=== PATIENT | male | born 1990 | race Caucasian/White ===

== ENCOUNTER 2017-06-17 18:44 | Emergency (ER) | payer BC, OTHER ==
[2017-06-17 20:07] VITALS: BP 119/71
[2017-06-17] MEDS ORDERED: Ondansetron TAB* 4 MG PO ONE (20:24)
[2017-06-17] MEDS ORDERED: Acetaminophen TAB* 325 MG PO ONE (20:25)
--- NOTE | 2017-06-17 20:29 | ED ---
Influenza-Like Illness - HPI Summary HPI Summary: 27 yr old with NVD, last emesis 3 hours ago. Watery diarrhea. He has had some runny nose and cough as well. No abdominal pain. No fainting. - History of Current Complaint Chief Complaint: UCGeneralIllness Time Seen by Provider: 06/17/17 20:19 - Allergy/Home Medications Allergies/Adverse Reactions: Allergies Allergy/AdvReac Type Severity Reaction Status Date / Time No Known Allergies Allergy Verified 06/17/17 20:08 PMH/Surg Hx/FS Hx/Imm Hx Previously Healthy: Yes - Surgical History Surgery Procedure, Year, and Place: Excess fluid in testicle, 2002 Infectious Disease History: No Infectious Disease History: Denies: Traveled Outside the [place] in Last 30 Days - Family History Known Family History: Positive: None - Social History Occupation: Employed Full-time Alcohol Use: None Substance Use Type: Reports: None Smoking Status (MU): Heavy Every Day Tobacco Smoker Type: Cigarettes Amount Used/How Often: 1/2 PPD Length of Time of Smoking/Using Tobacco: 12 Years Have You Smoked in the Last Year: Yes Review of Systems Positive: Fever, Chills, Fatigue Positive: Vomiting, Diarrhea, Nausea All Other Systems Reviewed And Are Negative: Yes Physical Exam Triage Information Reviewed: Yes Vital Signs On Initial Exam: Initial Vitals Temp Pulse Resp BP Pulse Ox 100.8 F 107 17 119/71 99 06/17/17 20:02 06/17/17 20:02 06/17/17 20:02 06/17/17 20:02 06/17/17 20:02 Vital Signs Reviewed: Yes Appearance: Positive: Well-Appearing, No Pain Distress Skin: Positive: Warm, Skin Color Reflects Adequate Perfusion Head/Face: Positive: Normal Head/Face Inspection Eyes: Positive: EOMI ENT: Positive: Pharynx normal, Nasal congestion, TMs normal Respiratory/Lung Sounds: Positive: Clear to Auscultation, Breath Sounds Present Cardiovascular: Positive: RRR. Negative: Murmur Abdomen Description: Positive: Nontender Musculoskeletal: Positive: Strength/ROM Intact Neurological: Positive: Sensory/Motor Intact, Alert, Oriented to Person Place, Time, CN Intact II-III Psychiatric: Positive: Normal - Caroline Coma Scale Best Eye Response: 4 - Spontaneous Best Motor Response: 6 - Obeys Commands Best Verbal Response: 5 - Oriented Coma Scale Total: 15 Diagnostics - Vital Signs Vital Signs Temp Pulse Resp BP Pulse Ox 06/17/17 20:02 100.8 F 107 17 119/71 99 - Laboratory Lab Statement: Any lab studies that have been ordered have been reviewed, and results considered in the medical decision making process. Flu Symptom Course/Dx - Course Course Of Treatment: 27 yr male with gastroenteritis, rx zofran. DC home. - Diagnoses Provider Diagnoses: Gastroenteritis Discharge - Discharge Plan Condition: Good Disposition: HOME Prescriptions: Ondansetron ODT TAB* [Zofran 4 MG Odt TAB*] 4 mg PO Q8H PRN #14 tab.odt PRN Reason: Nausea Patient Education Materials: Gastroenteritis (ED) Referrals: STEPHEN Borges [Primary Care Provider] -
[2017-06-17] MEDS ORDERED: Ondansetron ODT TAB* 4 MG PO ONE (20:30)
== END 2017-06-17 20:55 | disposition home or self-care (01) ==
LOC: UCCORT 18:44
DX: K52.9 Noninfective gastroenteritis and colitis, unspecified (principal); F17.210 Nicotine dependence, cigarettes, uncomplicated
CPT/HCPCS: 87502; 99212; A9270-GY; G0463

== ENCOUNTER 2019-04-24 08:43 | Emergency (ER) | payer OTHER ==
[2019-04-24 09:11] VITALS: BP 126/84
[2019-04-24] MEDS ORDERED: Tetan/Diph/Pertus SYR(Tdap)* 0.5 ML SYR(BOOSTRIX) use SYR contains LATEX IM ONE (09:56)
[2019-04-24] MEDS ORDERED: Ibuprofen TAB* 600 MG PO ONE (09:56)
--- NOTE | 2019-04-24 10:54 | UC ---
Upper Extremity HPI - HPI Summary HPI Summary: Patient presents to urgent care for evaluation on his left wrist pain patient was at work yesterday when a 2 x 4 board popped up nail in it. Patient states the nail struck him in the left wrist. Patient states he clean the with alcohol and a bandage. Patient states that he's got increasing pain. Mild redness at site. Patient's hand dominant. Patient is not on his last tetanus was. Patient denies any pierced tissues or weakness. Patient is not immunocompromised. Patient's medications as noted in the EMR by triage as reviewed this visit. - History of Current Complaint Chief Complaint: UCUpperExtremity Stated Complaint: LEFT WRIST INJURY (WC) Time Seen by Provider: 04/24/19 09:21 Hx Obtained From: Patient Pain Intensity: 5 - Allergies/Home Medications Allergies/Adverse Reactions: Allergies Allergy/AdvReac Type Severity Reaction Status Date / Time No Known Allergies Allergy Verified 04/24/19 09:08 Home Medications: Home Medications Ibuprofen TAB* [Advil TAB*] 400 mg PO Q6H PRN 04/24/19 [History Confirmed ] PMH/Surg Hx/FS Hx/Imm Hx Previously Healthy: Yes - Surgical History Surgical History: Yes Surgery Procedure, Year, and Place: Excess fluid in testicle, 2002 - Family History Known Family History: Positive: None, Non-Contributory - Social History Occupation: Employed Full-time Lives: With Family Alcohol Use: None Substance Use Type: None Smoking Status (MU): Heavy Every Day Tobacco Smoker Type: Cigarettes Amount Used/How Often: 1/2 PPD Length of Time of Smoking/Using Tobacco: 12 Years Have You Smoked in the Last Year: Yes Household Exposure Type: Cigarettes - Immunization History Most Recent Tetanus Shot: Unsure Review of Systems All Other Systems Reviewed And Are Negative: No Skin: Positive: Other - forearm wound Motor: Positive: Other - Wrist pain Physical Exam - Summary Physical Exam Summary: Vital Signs Reviewed: Yes A+Ox3, no distress Eyes: Conjunctiva Clear ENT: Hearing grossly normal neck: supple Respiratory: Positive: No respiratory distress, No accessory muscle use Cardiovascular: skin color reflect adequate perfusion 2+ radial, ulnar Musculoskeletal Exam: + flex/ext elbow + pronate/supinate + flex/ext wrist - increased pain dorsum wrist + full flexion/extension with pain referred to wrist Neurological: Positive: Alert, ambulatory without difficulty + thumb up, a ok, finger spread, finger cross Psychological: Positive: Normal Response To examiner Skin: Positive: no rash, no ecchymosis pt with puncture wound, volar aspect mid joint . mild edema, no fluctuance, induration, drainage. No pain extension to palmar surface or proximal Triage Information Reviewed: Yes Vital Signs: Initial Vital Signs Temp 98.1 F 04/24/19 09:08 Pulse 74 04/24/19 09:08 Resp 15 04/24/19 09:08 BP 126/84 04/24/19 09:08 Pulse Ox 100 04/24/19 09:08 Diagnostics - Radiology No standard instances Radiology Interpretation Completed By: Radiologist - Patient Name: MATHEW SON Medical Record#: [id number] Ordering Physician: Jessica Reyna MD Acct.#: [id number] : 1990 Age: 29 Sex: M Location: [facility] Exam Date: 04/24/19919 ADM Status: REG ER Order Information: FOREARM LEFT 2 VWS Accession Number: [id number] CPT: 97872 Indication: Left forearm injury. 2 views of left forearm demonstrates no fracture. No other bone or joint abnormality is present. IMPRESSION: No fracture of the left forearm is noted. <Electronically signed by Stephanie Gomez MD in OV> 04/24/19 100 Dictated By: Stephanie Gomez MD Dictated Date/Time: 04/24/19951 Transcribed Date/Time: 04/24/19951 Copy to: CC:Jessica Reyna MD; No Primary Care Phys,NOPCP Imaging - [facility] [address] [address] ph ) ph ([phone]) ph ([phone]) This report is only to be considered final once signed by the Provider(s) as displayed in the "<Electronically Signed by >" field (s). Absence of a signature indicates the report is in a draft status and still needs to be finalized. In the event this document was created by someone other than the signing Provider, the individual initiating the document will be listed in the "Entered by:" or "Dictated by:" zheng. 1 of 1 Patient Name: MATHEW SON Medical Record#: [id number] Ordering Physician: Jessica Reyna MD Acct.#: [id number] : 1990 Age: 29 Sex: M Location: [facility] Exam Date: 04/24/19919 ADM Status: REG ER Order Information: HAND LEFT 2 VWS Accession Number: [id number] CPT: 10637 INDICATION: Struck by a 2 x 4 with a nail protruding from it. Hit at the anterior side of the LEFT wrist over the carpals.. COMPARISON: No relevant prior exams available on the [facility] PACS for comparison. TECHNIQUE: AP and lateral hand views LEFT hand. AP, lateral, and oblique views LEFT wrist. REPORT : Negative for fracture, articular malalignment, conspicuous foreign body, or subcutaneous emphysema. Unremarkable soft tissue contours. IMPRESSION: #. Negative radiographic exam of the LEFT wrist and hand. <Electronically signed by Jelani Ray MD in OV> 04/24/19958 Dictated By: Jelani Ray MD Dictated Date/ Time: 04/24/19953 Transcribed Date/Time: 04/24/19953 Copy to: CC:Jessica Reyna MD; No Primary Care Phys,NOPCP Imaging - [facility] Ur[facility] [address] [address] ph ) ph ([phone]) ph ([phone]) This report is only to be considered final once signed by the Provider(s) as displayed in the "<Electronically Signed by >" field (s). Absence of a signature indicates the report is in a draft status and still needs to be finalized. In the event this document was created by someone other than the signing Provider, the individual initiating the document will be listed in the "Entered by:" or "Dictated by:" zheng. 1 of 1 Patient Name: MATHEW SON Medical Record#: [id number] Ordering Physician: Jessica Reyna MD Acct.#: [id number] : 1990 Age: 29 Sex: M Location: [facility] Exam Date: 04/24/19919 ADM Status: REG ER Order Information: WRIST LEFT 3+ VWS Accession Number: [id number] CPT: 78457 INDICATION: Struck by a 2 x 4 with a nail protruding from it. Hit at the anterior side of the LEFT wrist over the carpals.. COMPARISON: No relevant prior exams available on the [facility] PACS for comparison. TECHNIQUE: AP and lateral hand views LEFT hand. AP, lateral, and oblique views LEFT wrist. REPORT: Negative for fracture, articular malalignment, conspicuous foreign body, or subcutaneous emphysema. Unremarkable soft tissue contours. IMPRESSION: #. Negative radiographic exam of the LEFT wrist and hand. <Electronically signed by Jelani Ray MD in OV > 04/24/19958 Dictated By: Jelani Ray MD Dictated Date/Time: 04/24/19953 Transcribed Date/Time: 04/24/19953 Copy to: CC:Jessica Reyna MD; No Primary Care Phys,NOPCP Imaging - [facility] [address] [address] ph ([phone]) ph ([phone]) ph ([phone]) This report is only to be considered final once signed by the Provider(s) as displayed in the "<Electronically Signed by >" field (s). Absence of a signature indicates the report is in a draft status and still needs to be finalized. In the event this document was created by someone other than the signing Provider, the individual initiating the document will be listed in the "Entered by:" or "Dictated by:" zheng. 1 of 1 Upper Extremity Course/Dx - Course Course Of Treatment: Patient presents to urgent care for evaluation of wrist pain and puncture wound that happened yesterday at work. Patient is right-hand dominant. Patient was struck in the left arm with a 2 x 4 that a nail. Patient sustained a puncture wound to left lower aspect. On exam vital signs are stable. Patient with good CSM. Patient with pain with extension of the wrist as well as extension of the hand referred to the wrist. Patient does have a visible puncture wound with surrounding erythema. No drainage or fluctuance. Imaging was negative for acute fracture. We'll update patient's tetanus. We will recommend Motrin and Tylenol. Care. Starting antibiotics. Patient is splinted. Recommend patient follow up with occupational medicine. Patient given referral information. Form signed for Workmen's Comp. Patient given a work for Saturday. Patient is understanding and agreement with plan. Strict return precautions discussed this visit. - Differential Dx/Diagnosis Provider Diagnosis: Left wrist pain, Puncture wound Discharge ED - Sign-Out/Discharge Documenting (check all that apply): Patient Departure All imaging exams completed and their final reports reviewed: Yes - Discharge Plan Condition: Stable Disposition: HOME Prescriptions: Amoxicillin/Clavulanate TAB* [Augmentin TAB 875*] 875 mg PO BID #20 tab Patient Education Materials: Diphtheria/Acellular Pertussis/Tetanus Booster Vaccine (By injection), Wrist Injury (ED), Puncture Wound (ED) Forms: *Work Release Referrals: Dewayne Templeton MD [Medical Doctor] - No Primary Care Phys,NOPCP [Primary Care Provider] - Additional Instructions: - wear splint as much as possible for comfort and support - Okay to alternate ibuprofen (Advil, Motrin) and Tylenol (acetaminophen) every 3 hours for pain or fever. Take with food. Do NOT take for more than 4-5 days. - Take antibiotics 2 times a day as prescribe until gone - wash your wound with warm, soapy water 2 times a day - pat dry - cover with antibiotic ointment and a bandage - monitor your wound for signs of increasing infection - reddness, red streaking , drainage - if you have concerns you should be rechecked - Contact Dr. Templeton, occupational therapist aide, today for a follow-up appointment next week, You received a tetanus booster today - your arm will likely be sore the next 1- 2 days - this is normal following this vaccination - Billing Disposition and Condition Condition: STABLE Disposition: Home
== END 2019-04-24 10:40 | disposition home or self-care (01) ==
LOC: UCCORT 08:43
DX: M25.532 Pain in left wrist (principal); S61.532A Puncture wound without foreign body of left wrist, initial encounter; W20.8XXA Other cause of strike by thrown, projected or falling object, initial encounter; Y92.9 Unspecified place or not applicable; F17.210 Nicotine dependence, cigarettes, uncomplicated
CPT/HCPCS: 90471; 90715; 99213; A9270-GY; G0463